=== PATIENT | male | born 1960 ===

== ENCOUNTER 2018-11-15 09:52 | Emergency (ER) | payer SELFPAY ==
[2018-11-15 09:58] VITALS: BP 157/83
[2018-11-15] MEDS ORDERED: BOOSTRIX IM ONE (10:38)
--- NOTE | 2018-11-15 10:45 | Emergency Department Report ---
ED Animal Bite HPI - General Chief Complaint: Animal Bite Stated Complaint: BITE BY RAT Time Seen by Provider: 11/15/18 10:26 Source: patient Mode of arrival: Ambulatory Limitations: No Limitations - History of Present Illness Initial Comments: Patient is a 58-year-old male who is presenting status post a mouse or rat bite to his chin. Patient states he was sleeping he felt something bite him on the chin when he woke up he saw this a small rodents carry on the floor. Patient is unsure whether this was a mouse or rat. Patient states the pain is minimal 3 out of 10 in severity and aching in nature. Patient denies any fevers chills nausea vomiting at this time. Patient does not remember his last tetanus shot. - Related Data Previous Rx's Medication Instructions Recorded Last Taken Type Amoxicillin/Potassium Clav 1 each PO BID #14 tablet 11/15/18 Unknown Rx [Augmentin 875-125 Tablet] Allergies Allergy/AdvReac Type Severity Reaction Status Date / Time No Known Allergies Allergy Unverified 11/15/18 09:53 ED Review of Systems ROS: Stated complaint: BITE BY RAT Other details as noted in HPI Comment: All other systems reviewed and negative ED Past Medical Hx - Past Medical History Previous Medical History?: No - Surgical History Past Surgical History?: No - Social History Smoking Status: Never Smoker Substance Use Type: Alcohol - Medications Home Medications: Home Medications Medication Instructions Recorded Confirmed Last Taken Type Amoxicillin/Potassium Clav 1 each PO BID #14 tablet 11/15/18 Unknown Rx [Augmentin 875-125 Tablet] ED Physical Exam - General Limitations: No Limitations General appearance: alert, in no apparent distress - Head Head exam: Present: atraumatic, normocephalic - Eye Eye exam: Present: normal appearance - ENT ENT exam: Present: mucous membranes moist - Neck Neck exam: Present: normal inspection - Respiratory Respiratory exam: Present: normal lung sounds bilaterally. Absent: respiratory distress - Cardiovascular Cardiovascular Exam: Present: regular rate, normal rhythm. Absent: systolic murmur, diastolic murmur, rubs, gallop - GI/Abdominal GI/Abdominal exam: Present: soft, normal bowel sounds - Rectal Rectal exam: Present: deferred - Extremities Exam Extremities exam: Present: normal inspection - Back Exam Back exam: Present: normal inspection - Neurological Exam Neurological exam: Present: alert, oriented X3 - Psychiatric Psychiatric exam: Present: normal affect, normal mood - Skin Skin exam: Present: warm, dry, intact, normal color, other (patient does have 2 small puncture malagon on his chin. There is no active bleeding at this time.). Absent: rash ED Course Vital Signs 11/15/18 11/15/18 09:56 09:58 Temperature 99.2 F Pulse Rate 65 Respiratory 14 Rate Blood Pressure 157/83 O2 Sat by Pulse 95 Oximetry - Reevaluation(s) Reevaluation #1: 11/15/18 10:44 Patient given a tetanus shot here in the emergency department and will also be started on Augmentin and will be discharged home. Critical care attestation.: If time is entered above; I have spent that time in minutes in the direct care of this critically ill patient, excluding procedure time. ED Disposition Clinical Impression: Rat bite Qualifiers: Encounter type: initial encounter Qualified Code(s): W53.11XA - Bitten by rat, initial encounter Disposition: DC-01 TO HOME OR SELFCARE Is pt being admited?: No Does the pt Need Aspirin: No Condition: Stable Instructions: Animal Bite (ED) Time of Disposition: 10:44 Print Language: LITHUANIAN
== END 2018-11-15 11:09 | disposition home or self-care (01) ==
LOC: ED 09:52
DX: S01.85XA Open bite of other part of head, initial encounter (principal); W53.11XA Bitten by rat, initial encounter; Y93.89 Activity, other specified; Y92.89 Other specified places as the place of occurrence of the external cause; Y99.8 Other external cause status
CPT/HCPCS: 90471; 90715; 99282